=== PATIENT | male | born 1930 | race Caucasian/White ===

== ENCOUNTER 2016-06-06 09:13 | Day surgery (SDC) | payer OTHER ==
[~2016-06-06 09:13] MED LIST: ACETAMINOPHEN 325 MG ONE
[2016-06-06] MEDS: PROPARACAINE HCL 0.5% OPHTHALMIC SOL ONE ×3 (09:47→11:12)
[2016-06-06] MEDS: CYCLOPENTOLATE 1% SOL ONE ×2 (09:48→10:02)
[2016-06-06] MEDS: PHENYLEPHRINE HCL 10% OPHTHAL SOL ONE ×2 (09:48→10:01)
[2016-06-06] MEDS: KETOROLAC 0.5% OPTH 60 DROP SOL ONE ×2 (09:49→10:02)
[2016-06-06] MEDS: MOXIFLOXACIN-HOME SOL LEFTEYE ONE ×2 (09:49→10:02)
[2016-06-06] MEDS ORDERED: MIDAZOLAM 2 MG/2 ML SOL ONE (10:24)
[2016-06-06] MEDS ORDERED: FENTANYL CITRATE 50 MCG/ML SOL ONE (10:24)
[2016-06-06] MEDS ORDERED: TRYPAN BLUE 0.5 ML SOL IO ONE (11:00)
[2016-06-06] MEDS ORDERED: BACITRACIN 500 U/GM OIN TOP ONE (11:00)
[2016-06-06] MEDS ORDERED: LIDOCAINE HCL 2% MPF SOL ONE (11:00)
[2016-06-06] MEDS ORDERED: POVIDONE IODINE 5% SOL ONE (11:00)
[2016-06-06] MEDS ORDERED: LIDOCAINE HCL 1% MPF SOL ONE (11:00)
[2016-06-06] MEDS ORDERED: BSS W/ 0.25MG P.F. EPI 1 BOTTLE ONE (11:00)
[2016-06-06] MEDS ORDERED: HYALURONIDASE 200 U/ML SOL SC ONE (11:01)
[2016-06-06] MEDS ORDERED: PROPOFOL 10 MG/ML EMU IV ONE (11:07)
[2016-06-06] MEDS ORDERED: ACETAZOLAMIDE 500 MG CER ONE (11:18)
[2016-06-06] MEDS ORDERED: MOXIFLOXACIN-HOME SOL LEFTEYE ONE (11:54)
[2016-06-06 12:16] VITALS: RESP 18; TEMP 97.2
[2016-06-06 12:41] VITALS: BP 111/59; PULSE 90; O2SAT 94
== END 2016-06-06 12:38 | disposition home or self-care (01) | DRG 125 ==
LOC: SURG 09:13
PROVIDERS: ATTEND Ophthalmology
DX: H25.9 Unspecified age-related cataract (principal); H21.81 Floppy iris syndrome
CPT/HCPCS: J2250; J3010; J3470

== ENCOUNTER 2016-07-11 09:15 | Day surgery (SDC) | payer OTHER ==
[2016-07-11] MEDS ORDERED: ACETAMINOPHEN 325 MG ONE (10:09)
[2016-07-11] MEDS: PHENYLEPHRINE HCL 10% OPHTHAL SOL RIGHTEYE ONE ×2 (10:23→10:39)
[2016-07-11] MEDS: PROPARACAINE HCL 0.5% OPHTHALMIC SOL ONE ×3 (10:23→11:45)
[2016-07-11] MEDS: CYCLOPENTOLATE 1% SOL ONE ×2 (10:24→10:39)
[2016-07-11] MEDS: GATIFLOXACIN 2.5 ML DROP SOL RIGHTEYE ONE ×2 (10:24→12:22)
[2016-07-11] MEDS ORDERED: NEPAFENAC 1.7 ML DROPS.SUSP RIGHTEYE ONE ×2 (10:25→10:40)
[2016-07-11 10:32] VITALS: RESP 18
[2016-07-11] MEDS ORDERED: GATIFLOXACIN 2.5 ML DROP SOL RIGHTEYE ONE (10:39)
[2016-07-11] MEDS ORDERED: BSS W/ 0.25MG P.F. EPI 1 BOTTLE ONE (10:44)
[2016-07-11] MEDS ORDERED: LIDOCAINE HCL 1% MPF SOL ONE ×2 (10:45→11:00)
[2016-07-11] MEDS ORDERED: POVIDONE IODINE 5% SOL ONE (10:45)
[2016-07-11] MEDS ORDERED: LIDOCAINE HCL 2% MPF SOL ONE (10:46)
[2016-07-11] MEDS ORDERED: HYALURONIDASE 200 U/ML SOL SC ONE (10:46)
[2016-07-11] MEDS ORDERED: TRYPAN BLUE 0.5 ML SOL IO ONE (10:48)
[2016-07-11] MEDS ORDERED: PHENYLEPHRINE HCL 10% OPHTHAL SOL ONE (10:51)
[2016-07-11] MEDS ORDERED: MIDAZOLAM 2 MG/2 ML SOL ONE (11:00)
[2016-07-11] MEDS ORDERED: PROPOFOL 10 MG/ML EMU IV ONE (11:00)
[2016-07-11] MEDS ORDERED: BACITRACIN 500 U/GM OIN TOP ONE (11:31)
[2016-07-11] MEDS ORDERED: ERYTHROMYCIN OPTHAL 1 GM TUBE ONE (11:33)
[2016-07-11 12:41] VITALS: TEMP 97.7
[2016-07-11] MEDS ORDERED: ACETAZOLAMIDE 500 MG CER ONE (12:42)
[2016-07-11 13:25] VITALS: BP 99/64; PULSE 62; O2SAT 93
== END 2016-07-11 13:22 | disposition home or self-care (01) | DRG 125 ==
LOC: SURG 09:15
PROVIDERS: ATTEND Ophthalmology
DX: H25.9 Unspecified age-related cataract (principal); H21.81 Floppy iris syndrome; H57.09 Other anomalies of pupillary function
CPT/HCPCS: J2250; J3470; J2001; J2704

== ENCOUNTER 2016-07-30 15:56 | Emergency (ER) | payer OTHER ==
[2016-07-30 16:08] VITALS: TEMP 98.4
[2016-07-30] MEDS ORDERED: ALBUTEROL/IPRATROPIUM 1 VIAL SOL INH ONE (16:31)
[2016-07-30] MEDS ORDERED: ALBUTEROL/IPRATROPIUM 1 VIAL SOL ONE (16:33)
[2016-07-30 16:53] VITALS: RESP 28
[2016-07-30 19:29] VITALS: BP 106/66; PULSE 86; O2SAT 96
== END 2016-07-30 19:15 | disposition home or self-care (01) | DRG 203 ==
LOC: ED 15:56
DX: J20.9 Acute bronchitis, unspecified (principal)
CPT/HCPCS: 71020; 99283; J7620

== ENCOUNTER 2017-02-05 09:47 | Emergency (ER) | payer OTHER ==
[2017-02-05] MEDS ORDERED: ACETAMINOPHEN 500 MG 500 MG TAB PO ONE (10:03)
[2017-02-05 10:12] VITALS: TEMP 97.4
[2017-02-05 10:16] LABS: HEMATOCRIT 40 % (39-53); MEAN CORPUSCULAR HGB CONC 33.8 gm/dl (32.0-36.0); MEAN CORPUSCULAR VOLUME 95 fL (80-100)
[2017-02-05 10:24] LABS: CALCIUM 8.5 mg/dl (8.5-10.1); POTASSIUM 4.3 mMol/L (3.5-5.1)
[2017-02-05] MEDS ORDERED: ACETAMINOPHEN 500 MG 500 MG TAB ONE ×2 (10:30)
[2017-02-05 10:36] LABS: BASOPHILS % (MANUAL) 0 % (0-3); EOSINOPHILS % (MANUAL) 3 % (0-9); LYMPHOCYTES % (MANUAL) 23 % (10-50); NORMAL RBCS NORMAL RBCS
[2017-02-05 15:40] VITALS: BP 105/46; PULSE 89; RESP 20; O2SAT 95
== END 2017-02-05 11:50 | disposition home or self-care (01) | DRG 556 ==
LOC: ED 09:47
DX: M25.552 Pain in left hip (principal); S80.812A Abrasion, left lower leg, initial encounter; W19.XXXA Unspecified fall, initial encounter
CPT/HCPCS: 36415; 73501; 80048; 85007; 85027; 99282; 99283

== ENCOUNTER 2017-03-11 13:40 | Observation (INO) | payer OTHER ==
[2017-03-11] MEDS ORDERED: SODIUM CHLORIDE 0.9% 500 ML 500 ML IV ONE (13:49)
[2017-03-11] MEDS ORDERED: MAGNESIUM SULFATE 5 GM/10 ML SOL IV ONE (13:56)
[2017-03-11] MEDS ORDERED: MAGNESIUM SULFATE 5 GM/10 ML SOL ONE (13:58)
[2017-03-11 14:03] LABS: BASOPHILS % (AUTO) 1 % (0-3); EOSINOPHILS % (AUTO) 4 % (0-9); HEMATOCRIT 34 % (39-53); MEAN CORPUSCULAR HGB CONC 34.8 gm/dl (32.0-36.0); MEAN CORPUSCULAR VOLUME 92 fL (80-100); MONOCYTES % (AUTO) 7.6 % (0-12); NEUTROPHILS % (AUTO) 67.5 % (37-80)
[2017-03-11] MEDS: SODIUM CHLORIDE 0.9% FLUSH 10 ML SOL IV PRN ×2 (14:10→20:48)
[2017-03-11 14:16] LABS: CALCIUM 8.5 mg/dl (8.5-10.1); GLOM FILT RATE 58 mL/min (>60); POTASSIUM 4.4 mMol/L (3.5-5.1); SODIUM 139 mMol/L (136-145)
[2017-03-11] MEDS ORDERED: ALBUTEROL/IPRATROPIUM 1 VIAL SOL INH ONE (14:17)
[2017-03-11] MEDS ORDERED: ALBUTEROL NEB SOL 2.5MG/3ML 1 VIAL SOL INH PRN (18:43)
[2017-03-11] MEDS ORDERED: ACETAMINOPHEN 325 MG PO PRN (18:43)
[2017-03-11] MEDS: ALBUTEROL/IPRATROPIUM 1 VIAL SOL INH SCH (20:39)
[2017-03-12 06:21] VITALS: RESP 20
[2017-03-12 08:16] VITALS: TEMP 97.8; O2SAT 96
[2017-03-12] MEDS ORDERED: TAMSULOSIN HYDROCHLORIDE 0.4 MG CAP PO SCH (09:00)
[2017-03-12] MEDS ORDERED: FINASTERIDE 5 MG TAB PO SCH (09:00)
[2017-03-12] MEDS: ALBUTEROL/IPRATROPIUM 1 VIAL SOL INH SCH (09:30)
[2017-03-12 11:31] VITALS: PULSE 84
[2017-03-12 13:29] VITALS: BP 91/50
[2017-03-13] MEDS ORDERED: METOPROLOL SUCCINATE 50 MG ER TAB PO SCH (09:00)
== END 2017-03-12 14:45 | DRG 310 ==
LOC: ED 13:40 → ACUTE CARE 16:20 → UNDOADMOB 16:30
PROVIDERS: ADMIT Surgery Surgical Critical Care; ATTEND Surgery Surgical Critical Care
DX: I48.0 Paroxysmal atrial fibrillation (principal); I95.9 Hypotension, unspecified; R06.02 Shortness of breath; R07.9 Chest pain, unspecified
CPT/HCPCS: 36415; 71010; 80048; 83735; 83880; 84484; 85025; 93005; 93012; 96365; 96366; 99218; 99285; J3475; J7603; J7620

== ENCOUNTER 2017-06-04 16:19 | Emergency (ER) | payer MEDICARE, OTHER ==
[2017-06-04] MEDS ORDERED: ACETAMINOPHEN 500 MG 500 MG TAB PO ONE (16:40)
[2017-06-04] MEDS ORDERED: ACETAMINOPHEN 500 MG 500 MG TAB ONE (16:41)
[2017-06-04 16:56] VITALS: RESP 20; TEMP 99.2
[2017-06-04] MEDS ORDERED: LIDOCAINE HCL 1% MPF SOL ONE (17:50)
[2017-06-04] MEDS ORDERED: LIDOCAINE HCL 1% MDV SOL SC ONE (17:51)
[2017-06-04 18:47] VITALS: BP 112/72; PULSE 87; O2SAT 97
== END 2017-06-04 19:20 | disposition home or self-care (01) | DRG 605 ==
LOC: ED 16:19
DX: S01.01XA Laceration without foreign body of scalp, initial encounter (principal); R40.2412 Glasgow coma scale score 13-15, at arrival to emergency department; W01.0XXA Fall on same level from slipping, tripping and stumbling without subsequent striking against object, initial encounter
CPT/HCPCS: 70450; 99285; J2001

== ENCOUNTER 2017-07-21 17:16 | Emergency (ER) | payer OTHER ==
[2017-07-21] MEDS ORDERED: SODIUM CHLORIDE 0.9% 500 ML SOL IV SCH (17:45)
[2017-07-21] MEDS ORDERED: ALBUTEROL/IPRATROPIUM 1 VIAL SOL INH ONE (17:48)
[2017-07-21 18:01] LABS: APPEARANCE,URINE Slightly Cloudy; BILIRUBIN,URINE NEGATIVE (NEGATIVE); COLOR,URINE Yellow; GLUCOSE, URINE (UA) NEGATIVE (NEGATIVE); KETONES,URINE NEGATIVE (NEGATIVE); LEUKOCYTE ESTERASE ,URINE NEGATIVE (NEGATIVE); NITRATE,URINE NEGATIVE (NEGATIVE); OCCULT BLOOD,URINE NEGATIVE (NEG-TRACE); UROBILINOGEN,URINE 0.2 (0.2-1.0 EU)
[2017-07-21 18:01] LABS: BASOPHILS % (AUTO) 1 % (0-3); EOSINOPHILS % (AUTO) 0 % (0-9); HEMATOCRIT 39 % (39-53); MEAN CORPUSCULAR HGB CONC 34.3 gm/dl (32.0-36.0); MEAN CORPUSCULAR VOLUME 92 fL (80-100); MONOCYTES % (AUTO) 10.3 % (0-12); NEUTROPHILS % (AUTO) 79.9 % (37-80)
[2017-07-21 18:12] LABS: ALBUMIN 3.5 gm/dl (3.4-5.0); CALCIUM 8.4 mg/dl (8.5-10.1); POTASSIUM 4.5 mMol/L (3.5-5.1)
[2017-07-21] MEDS ORDERED: ALBUTEROL/IPRATROPIUM 1 VIAL SOL ONE (18:22)
[2017-07-21 18:23] LABS: RBC,URINE 0-1 (0-3AV/HPF)
[2017-07-21] MEDS ORDERED: OSELTAMIVIR PHOSPHATE 75 MG CAP PO ONE ×2 (18:29→18:36)
[2017-07-21 18:30] VITALS: RESP 20
[2017-07-21] MEDS ORDERED: IBUPROFEN 400 MG TAB PO ONE (18:30)
[2017-07-21] MEDS ORDERED: IBUPROFEN 400 MG TAB ONE (18:36)
[2017-07-21 19:28] VITALS: TEMP 101.1
[2017-07-21 20:54] VITALS: BP 99/59; PULSE 93; O2SAT 95
== END 2017-07-21 20:30 | disposition home or self-care (01) | DRG 192 ==
LOC: ED 17:16
DX: J44.1 Chronic obstructive pulmonary disease with (acute) exacerbation (principal); J11.1 Influenza due to unidentified influenza virus with other respiratory manifestations; M79.651 Pain in right thigh; R32 Unspecified urinary incontinence
CPT/HCPCS: 36415; 71045; 73552; 80053; 81001; 85025; 87040; 87077; 87088; 87186; 87804; 96365; 99284; A9270-GY

== ENCOUNTER 2017-08-18 16:40 | Emergency (ER) | payer OTHER ==
[2017-08-18 17:32] LABS: BASOPHILS % (AUTO) 1 % (0-3); EOSINOPHILS % (AUTO) 2 % (0-9); HEMATOCRIT 38 % (39-53); MEAN CORPUSCULAR VOLUME 96 fL (80-100); MONOCYTES % (AUTO) 7.8 % (0-12)
[2017-08-18 17:47] LABS: CALCIUM 8.6 mg/dl (8.5-10.1); POTASSIUM 4.6 mMol/L (3.5-5.1)
[2017-08-18 17:59] LABS: APPEARANCE,URINE Clear; BILIRUBIN,URINE NEGATIVE (NEGATIVE); COLOR,URINE Yellow; GLUCOSE, URINE (UA) NEGATIVE (NEGATIVE); KETONES,URINE NEGATIVE (NEGATIVE); LEUKOCYTE ESTERASE ,URINE NEGATIVE (NEGATIVE); NITRATE,URINE NEGATIVE (NEGATIVE); OCCULT BLOOD,URINE NEGATIVE (NEG-TRACE); UROBILINOGEN,URINE 0.2 (0.2-1.0 EU)
[2017-08-18 18:12] LABS: RBC,URINE NEG (0-3AV/HPF); WBC,URINE NEG (0-5AV/HPF)
[2017-08-18 18:17] VITALS: BP 149/87; PULSE 93; RESP 20; O2SAT 98
[2017-08-18 18:18] VITALS: TEMP 98.3
[2017-08-18] MEDS ORDERED: AMOXICILLIN 250 MG CAP PO ONE (18:31)
[2017-08-18] MEDS ORDERED: AMOXICILLIN(FRIDGE) 125/5 ML BOTTLE PO ONE (18:37)
[2017-08-18] MEDS ORDERED: AMOXICILLIN(FRIDGE) 125/5 ML BOTTLE ONE (18:38)
[2017-08-18] MEDS ORDERED: ACETAMINOPHEN 325 MG PO ONE (18:53)
[2017-08-18] MEDS ORDERED: ACETAMINOPHEN 325 MG ONE (18:54)
== END 2017-08-18 19:37 | disposition home or self-care (01) | DRG 914 ==
LOC: ED 16:40
DX: S09.8XXA Other specified injuries of head, initial encounter (principal); J01.90 Acute sinusitis, unspecified; S70.11XA Contusion of right thigh, initial encounter; W18.09XA Striking against other object with subsequent fall, initial encounter; R40.2412 Glasgow coma scale score 13-15, at arrival to emergency department; M54.2 Cervicalgia; R41.0 Disorientation, unspecified; S61.011A Laceration without foreign body of right thumb without damage to nail, initial encounter
CPT/HCPCS: 36415; 70450; 71045; 72125; 73552; 80048; 81001; 85025; 93005; 99285; A9270-GY

== ENCOUNTER 2018-03-30 10:59 | Inpatient (IN) | payer OTHER ==
[2018-03-30] MEDS ORDERED: SODIUM CHLORIDE 0.9% FLUSH 10 ML SOL IV PRN (11:18)
[2018-03-30] MEDS ORDERED: MORPHINE SULFATE 10 MG/ML SOL IV PRN (11:18)
[2018-03-30] MEDS ORDERED: FUROSEMIDE 40 MG SOL IV ONE (11:20)
[2018-03-30] MEDS ORDERED: FUROSEMIDE 20mg SOL ONE ×2 (11:53→11:55)
[2018-03-30] MEDS ORDERED: CLOTRIMAZOLE 1% CREAM TOP ONE (11:54)
[2018-03-30] MEDS: CLOTRIMAZOLE 1% CREAM TOP SCH (12:00)
[2018-03-30] MEDS ORDERED: LEVOFLOXACIN 25 MG/ML 500 MG in SODIUM CHLORIDE 0.9% 100 ML 100 ML IV ONE (12:14)
[2018-03-30 12:16] LABS: HEMATOCRIT 42 % (39-53); HEMOGLOBIN 13.4 gm/dl (13.5-17.7); MEAN CORPUSCULAR HEMOGLOBIN 30.7 pg (27.0-32.0); MEAN CORPUSCULAR HGB CONC 31.8 gm/dl (32.0-36.0); MEAN CORPUSCULAR VOLUME 97 fL (80-100)
[2018-03-30 12:27] LABS: INR 1.05 (0.86-1.12)
[2018-03-30 12:31] LABS: BLOOD UREA NITROGEN 25 mg/dl (7-18); CALCIUM 8.7 mg/dl (8.5-10.1); CARBON DIOXIDE 28.1 mEq/L (21-32); CHLORIDE 104 mMol/L (98-107); CREATINE KINASE 61 U/L (39-308); CREATININE 1.25 mg/dl (0.80-1.30); GLUCOSE 139 mg/dl (74-106); POTASSIUM 4.5 mMol/L (3.5-5.1); SODIUM 141 mMol/L (136-145); TROP I < 0.017 ng/ml (0.000-0.056)
[2018-03-30] MEDS ORDERED: LEVOFLOXACIN 25 MG/ML SOL IV ONE (12:32)
[2018-03-30 13:00] LABS: ANISOCYTOSIS SLIGHT; BAND NEUTROPHILS % (MANUAL) 1 %; BASOPHILS % (MANUAL) 0 % (0-3); EOSINOPHILS % (MANUAL) 0 % (0-9); LYMPHOCYTES % (MANUAL) 7 % (10-50); MONOCYTES % (MANUAL) 4 % (0-12); NEUTROPHILS % (MANUAL) 88 % (37-80)
[2018-03-30] MEDS ORDERED: FUROSEMIDE 20mg SOL IV SCH (14:00)
[2018-03-30] MEDS ORDERED: HYDROCORTISONE 1% CREAM 1 APPL CRE TOP PRN (15:44)
[2018-03-30] MEDS ORDERED: APAP/HYDROCODONE 1 EACH TABLET PO PRN (17:06)
[2018-03-30] MEDS: ALBUTEROL NEB SOL 2.5MG/3ML 1 VIAL SOL INH SCH ×3 (18:18→23:31)
[2018-03-30] MEDS ORDERED: ACETAMINOPHEN 325 MG PO PRN (21:00)
[2018-03-30] MEDS: ALBUTEROL/IPRATROPIUM 1 VIAL SOL INH SCH (21:49)
[2018-03-30] MEDS: SODIUM CHLORIDE 0.9% FLUSH 10 ML SOL IV SCH (21:55)
[2018-03-30] MEDS: TRAZODONE HYDROCHLORIDE 50 MG TAB PO SCH (21:55)
[2018-03-30] MEDS: SERTRALINE HYDROCHLORIDE 50 MG TAB PO SCH (21:56)
[2018-03-30] MEDS: NUTRITIONAL SUPPLEMENT PO SCH (21:57)
[2018-03-31] MEDS ORDERED: FUROSEMIDE 20mg SOL IV ONE (00:15)
[2018-03-31] MEDS ORDERED: CLINDAMYCIN 150 MG/ML SOL ONE ×2 (00:50→09:01)
[2018-03-31] MEDS ORDERED: SODIUM CHLORIDE 0.9% 100 ML 100 ML IV ONE ×6 (00:51→23:25)
[2018-03-31] MEDS: CLINDAMYCIN 150 MG/ML 600 MG in SODIUM CHLORIDE 0.9% 100 ML 100 ML IV SCH ×2 (00:59→09:26)
[2018-03-31] MEDS: SODIUM CHLORIDE 0.9% FLUSH 10 ML SOL IV SCH ×4 (00:59→20:30)
[2018-03-31 08:19] LABS: BASOPHILS % (AUTO) 1 % (0-3); EOSINOPHILS % (AUTO) 1 % (0-9); HEMATOCRIT 39 % (39-53); HEMOGLOBIN 12.4 gm/dl (13.5-17.7); LYMPHOCYTES % (AUTO) 8.1 % (10-50); MEAN CORPUSCULAR HEMOGLOBIN 30.1 pg (27.0-32.0); MEAN CORPUSCULAR HGB CONC 31.4 gm/dl (32.0-36.0); MEAN CORPUSCULAR VOLUME 96 fL (80-100); MONOCYTES % (AUTO) 6.5 % (0-12); NEUTROPHILS % (AUTO) 84.2 % (37-80)
[2018-03-31 08:48] LABS: BLOOD UREA NITROGEN 31 mg/dl (7-18); CALCIUM 8.4 mg/dl (8.5-10.1); CARBON DIOXIDE 32.4 mEq/L (21-32); CHLORIDE 104 mMol/L (98-107); CHOL/HDL RATIO 4.1 (2.8-6.4); CHOLESTEROL 95 mg/dl (120-200); CREATININE 1.41 mg/dl (0.80-1.30); GLUCOSE 131 mg/dl (74-106); HDL CHOLESTEROL 23 mg/dl (40-60); LDL/HDL RATIO 2.6 (1.5-4.5); MAGNESIUM 1.8 mg/dl (1.8-2.4); POTASSIUM 3.5 mMol/L (3.5-5.1); SODIUM 143 mMol/L (136-145); THYROID STIMULATING HORMONE 4.263 uIU/ml (0.358-3.740); TROP I < 0.017 ng/ml (0.000-0.056)
[2018-03-31] MEDS ORDERED: METOPROLOL SUCCINATE 25 MG TAB.ER.24H PO SCH (09:00)
[2018-03-31] MEDS: ALBUTEROL/IPRATROPIUM 1 VIAL SOL INH SCH ×4 (09:17→20:49)
[2018-03-31] MEDS: FUROSEMIDE 20mg SOL IV SCH ×2 (09:20→11:57)
[2018-03-31] MEDS: TAMSULOSIN HYDROCHLORIDE 0.4 MG CAP PO SCH (09:20)
[2018-03-31] MEDS: CLOTRIMAZOLE 1% CREAM TOP SCH (09:34)
[2018-03-31] MEDS: NUTRITIONAL SUPPLEMENT PO SCH ×3 (09:34→22:25)
[2018-03-31] MEDS ORDERED: LEVOFLOXACIN 25 MG/ML 500 MG in SODIUM CHLORIDE 0.9% 100 ML 100 ML IV ONE (10:00)
[2018-03-31] MEDS ORDERED: LEVOFLOXACIN 25 MG/ML SOL IV ONE (10:25)
[2018-03-31] MEDS: ALBUTEROL NEB SOL 2.5MG/3ML 1 VIAL SOL INH PRN ×3 (10:29→23:18)
[2018-03-31] MEDS ORDERED: DILTIAZEM 5 MG/ML SOL IV ONE (12:21)
[2018-03-31] MEDS ORDERED: PIPERACILLIN/TAZOBACT 3.375 GM PDS IV ONE ×3 (12:46→23:25)
[2018-03-31] MEDS: PIPERACILLIN/TAZOBACT 3.375 GM 3.375 GM in SODIUM CHLORIDE 0.9% 100 ML 100 ML IV SCH ×2 (13:15→18:25)
[2018-03-31] MEDS ORDERED: METOPROLOL TARTRATE 25 MG TAB ONE (16:12)
[2018-03-31] MEDS ORDERED: METOPROLOL SUCCINATE 50 MG ER TAB ONE (16:14)
[2018-03-31] MEDS: METOPROLOL SUCCINATE 25 MG TAB.ER.24H PO SCH (16:33)
[2018-03-31] MEDS ORDERED: SODIUM CHLORIDE 0.9% 500 ML 500 ML IV ONE (20:13)
[2018-03-31] MEDS: TRAZODONE HYDROCHLORIDE 50 MG TAB PO SCH (20:48)
[2018-03-31] MEDS: SERTRALINE HYDROCHLORIDE 50 MG TAB PO SCH (20:49)
[2018-04-01] MEDS: SODIUM CHLORIDE 0.9% FLUSH 10 ML SOL IV SCH ×5 (00:08→20:10)
[2018-04-01] MEDS: PIPERACILLIN/TAZOBACT 3.375 GM 3.375 GM in SODIUM CHLORIDE 0.9% 100 ML 100 ML IV SCH ×4 (00:08→19:13)
[2018-04-01] MEDS ORDERED: SODIUM CHLORIDE 0.9% 100 ML 100 ML IV ONE ×3 (06:17→19:04)
[2018-04-01] MEDS ORDERED: PIPERACILLIN/TAZOBACT 3.375 GM PDS IV ONE ×3 (06:17→19:04)
[2018-04-01 07:27] LABS: CREATININE 1.47 mg/dl (0.80-1.30); POTASSIUM 3.2 mMol/L (3.5-5.1)
[2018-04-01 07:28] LABS: BASOPHILS % (AUTO) 1 % (0-3); EOSINOPHILS % (AUTO) 1 % (0-9); HEMATOCRIT 37 % (39-53); LYMPHOCYTES % (AUTO) 8.4 % (10-50); MEAN CORPUSCULAR HEMOGLOBIN 30.9 pg (27.0-32.0); MEAN CORPUSCULAR HGB CONC 32.3 gm/dl (32.0-36.0); MEAN CORPUSCULAR VOLUME 96 fL (80-100); MONOCYTES % (AUTO) 7.2 % (0-12); NEUTROPHILS % (AUTO) 82.3 % (37-80)
[2018-04-01] MEDS: ALBUTEROL/IPRATROPIUM 1 VIAL SOL INH SCH ×4 (08:03→21:18)
[2018-04-01] MEDS ORDERED: POTASSIUM CHLORIDE 2 MEQ/ML 60 MEQ, LIDOCAINE HCL 1% MDV 2 ML in SODIUM CHLORIDE 0.9% 1... IV ONE (09:00)
[2018-04-01] MEDS: NUTRITIONAL SUPPLEMENT PO SCH ×3 (10:08→22:00)
[2018-04-01] MEDS: FINASTERIDE 5 MG TAB PO SCH (10:09)
[2018-04-01] MEDS: METOPROLOL SUCCINATE 50 MG TER PO SCH (10:10)
[2018-04-01] MEDS: TAMSULOSIN HYDROCHLORIDE 0.4 MG CAP PO SCH (10:11)
[2018-04-01] MEDS: CLOTRIMAZOLE 1% CREAM TOP SCH (12:00)
[2018-04-01] MEDS ORDERED: POTASSIUM CHLORIDE 10 MEQ TER PO SCH (14:00)
[2018-04-01] MEDS ORDERED: POTASSIUM CHLORIDE 2 MEQ/ML SOL IV ONE (14:35)
[2018-04-01] MEDS: FUROSEMIDE 20mg SOL IV SCH ×2 (14:43→18:02)
[2018-04-01] MEDS ORDERED: LIDOCAINE HCL 1% MPF 30 SOL ONE (14:48)
[2018-04-01] MEDS: POTASSIUM CHLORIDE 10 MEQ TER PO SCH ×2 (15:28→15:29)
[2018-04-01] MEDS ORDERED: POTASSIUM CHLORIDE 10 MEQ CAPSULE PO ONE (17:00)
[2018-04-01] MEDS: TRAZODONE HYDROCHLORIDE 50 MG TAB PO SCH (20:36)
[2018-04-01] MEDS: SERTRALINE HYDROCHLORIDE 50 MG TAB PO SCH (20:37)
[2018-04-02] MEDS ORDERED: SODIUM CHLORIDE 0.9% 100 ML 100 ML IV ONE ×2 (00:57→06:17)
[2018-04-02] MEDS ORDERED: PIPERACILLIN/TAZOBACT 3.375 GM PDS IV ONE ×2 (00:57→06:17)
[2018-04-02] MEDS: PIPERACILLIN/TAZOBACT 3.375 GM 3.375 GM in SODIUM CHLORIDE 0.9% 100 ML 100 ML IV SCH ×2 (00:58→06:22)
[2018-04-02] MEDS: ALBUTEROL NEB SOL 2.5MG/3ML 1 VIAL SOL INH PRN (04:28)
[2018-04-02] MEDS: SODIUM CHLORIDE 0.9% FLUSH 10 ML SOL IV SCH ×3 (04:35→20:36)
[2018-04-02 07:50] LABS: CALCIUM 8.4 mg/dl (8.5-10.1); CARBON DIOXIDE 31.2 mEq/L (21-32); CREATININE 1.43 mg/dl (0.80-1.30)
[2018-04-02 07:59] LABS: BASOPHILS % (AUTO) 1 % (0-3); EOSINOPHILS % (AUTO) 3 % (0-9); HEMATOCRIT 39 % (39-53); HEMOGLOBIN 12.3 gm/dl (13.5-17.7); LYMPHOCYTES % (AUTO) 10.4 % (10-50); MEAN CORPUSCULAR HEMOGLOBIN 30.4 pg (27.0-32.0); MEAN CORPUSCULAR HGB CONC 31.6 gm/dl (32.0-36.0); MEAN CORPUSCULAR VOLUME 96 fL (80-100); MONOCYTES % (AUTO) 7.2 % (0-12); NEUTROPHILS % (AUTO) 78.5 % (37-80)
[2018-04-02] MEDS: FINASTERIDE 5 MG TAB PO SCH (09:53)
[2018-04-02] MEDS: METOPROLOL SUCCINATE 50 MG TER PO SCH (09:53)
[2018-04-02] MEDS: CLOTRIMAZOLE 1% CREAM TOP SCH (09:53)
[2018-04-02] MEDS: ALBUTEROL/IPRATROPIUM 1 VIAL SOL INH SCH ×4 (09:54→20:33)
[2018-04-02] MEDS: TAMSULOSIN HYDROCHLORIDE 0.4 MG CAP PO SCH (09:54)
[2018-04-02] MEDS: FUROSEMIDE 40 MG TAB PO SCH ×2 (10:00→12:17)
[2018-04-02] MEDS: AMOXIL/CLAVULANATE 400/5 ML PDR PO SCH ×2 (10:00→20:35)
[2018-04-02] MEDS: NUTRITIONAL SUPPLEMENT PO SCH ×3 (10:01→20:44)
[2018-04-02] MEDS: FUROSEMIDE 20mg SOL IV SCH (12:21)
[2018-04-02] MEDS: METOPROLOL SUCCINATE 25 MG TAB.ER.24H PO SCH (12:22)
[2018-04-02] MEDS: SERTRALINE HYDROCHLORIDE 50 MG TAB PO SCH (20:36)
[2018-04-02] MEDS: TRAZODONE HYDROCHLORIDE 50 MG TAB PO SCH (20:37)
[2018-04-03 00:10] VITALS: TEMP 97.9
[2018-04-03] MEDS: SODIUM CHLORIDE 0.9% FLUSH 10 ML SOL IV SCH ×2 (04:53→12:30)
[2018-04-03 07:28] VITALS: BP 114/72; PULSE 92; RESP 24
[2018-04-03 07:32] LABS: CALCIUM 8.7 mg/dl (8.5-10.1); CREATININE 1.3 mg/dl (0.80-1.30)
[2018-04-03 07:33] LABS: BASOPHILS % (AUTO) 1 % (0-3); EOSINOPHILS % (AUTO) 5 % (0-9); HEMATOCRIT 43 % (39-53); HEMOGLOBIN 13.5 gm/dl (13.5-17.7); LYMPHOCYTES % (AUTO) 12.1 % (10-50); MEAN CORPUSCULAR HEMOGLOBIN 30.2 pg (27.0-32.0); MEAN CORPUSCULAR HGB CONC 31.5 gm/dl (32.0-36.0); MEAN CORPUSCULAR VOLUME 96 fL (80-100); MONOCYTES % (AUTO) 5.9 % (0-12); NEUTROPHILS % (AUTO) 76.4 % (37-80)
[2018-04-03] MEDS: ALBUTEROL/IPRATROPIUM 1 VIAL SOL INH SCH (09:03)
[2018-04-03] MEDS: CLOTRIMAZOLE 1% CREAM TOP SCH (09:05)
[2018-04-03] MEDS: FINASTERIDE 5 MG TAB PO SCH (09:06)
[2018-04-03] MEDS: TAMSULOSIN HYDROCHLORIDE 0.4 MG CAP PO SCH (09:06)
[2018-04-03] MEDS: NUTRITIONAL SUPPLEMENT PO SCH (09:06)
[2018-04-03] MEDS: METOPROLOL SUCCINATE 50 MG TER PO SCH (09:07)
[2018-04-03] MEDS: FUROSEMIDE 40 MG TAB PO SCH ×2 (09:08→11:04)
[2018-04-03] MEDS: AMOXIL/CLAVULANATE 400/5 ML PDR PO SCH (09:10)
[2018-04-03 09:21] VITALS: O2SAT 95
== END 2018-04-03 12:15 | disposition home or self-care (01) | DRG 291 ==
LOC: ED 10:59 → UNDOADMIN 13:51 → ACUTE CARE 13:51
PROVIDERS: ADMIT Family Medicine; ATTEND Family Medicine
PROC: F01K5ZZ Range of Motion and Joint Integrity Assessment of Musculoskeletal System - Upper Back / Upper Extremity (ICD-10-PCS; principal; 2018-04-02)
PROC: F02Z3ZZ Grooming/Personal Hygiene Assessment (ICD-10-PCS; 2018-04-02)
DX: I50.9 Heart failure, unspecified (principal); J18.9 Pneumonia, unspecified organism; R06.00 Dyspnea, unspecified; R06.02 Shortness of breath; D72.829 Elevated white blood cell count, unspecified; R00.0 Tachycardia, unspecified; I48.91 Unspecified atrial fibrillation; I25.10 Atherosclerotic heart disease of native coronary artery without angina pectoris; E11.9 Type 2 diabetes mellitus without complications
CPT/HCPCS: 36415; 71045; 80048; 80061; 82550; 82962; 83735; 83880; 84132; 84443; 84484; 85007; 85025; 85027; 85610; 85730; 87040; 93005; 93012; 94640; 96365; 96374; 96375; 99223; 99232; 99285; J1940; J1956; J2543; J3480; J3490; J7613; A9270; A9270-GY; J2001

== ENCOUNTER 2018-04-21 09:34 | Observation (INO) | payer OTHER ==
[2018-04-21] MEDS ORDERED: ALBUTEROL/IPRATROPIUM 1 VIAL SOL INH ONE (10:06)
[2018-04-21] MEDS ORDERED: SOLUMEDROL 125 MG/2 ML 125 MG/2 ML PDS IV ONE (10:09)
[2018-04-21 10:23] LABS: BASOPHILS % (AUTO) 1 % (0-3); EOSINOPHILS % (AUTO) 2 % (0-9); HEMATOCRIT 42 % (39-53); HEMOGLOBIN 13.2 gm/dl (13.5-17.7); LYMPHOCYTES % (AUTO) 13.6 % (10-50); MEAN CORPUSCULAR HGB CONC 31.6 gm/dl (32.0-36.0); MEAN CORPUSCULAR VOLUME 95 fL (80-100); MONOCYTES % (AUTO) 10.9 % (0-12); NEUTROPHILS % (AUTO) 73.2 % (37-80)
[2018-04-21] MEDS ORDERED: ALBUTEROL/IPRATROPIUM 1 VIAL SOL ONE (10:24)
[2018-04-21] MEDS ORDERED: SOLUMEDROL 125 MG/2 ML 125 MG/2 ML PDS ONE (10:24)
[2018-04-21 10:26] LABS: LACTIC ACID 1.4 mMol/L (0.0-2.0)
[2018-04-21 10:36] LABS: ALBUMIN 2.7 gm/dl (3.4-5.0); BILIRUBIN,TOTAL 0.4 mg/dl (0.2-1.0); CALCIUM 8.5 mg/dl (8.5-10.1); CARBON DIOXIDE 29.1 mEq/L (21-32); CREATININE 1.46 mg/dl (0.80-1.30); TOTAL PROTEIN 7.3 gm/dl (6.4-8.2)
[2018-04-21] MEDS: SODIUM CHLORIDE 0.9% FLUSH 10 ML SOL IV PRN ×2 (10:37→18:21)
[2018-04-21 10:58] LABS: APPEARANCE,URINE Clear; BILIRUBIN,URINE NEGATIVE (NEGATIVE); COLOR,URINE Yellow; GLUCOSE, URINE (UA) NEGATIVE (NEGATIVE); KETONES,URINE NEGATIVE (NEGATIVE); LEUKOCYTE ESTERASE ,URINE TRACE (NEGATIVE); NITRATE,URINE NEGATIVE (NEGATIVE); OCCULT BLOOD,URINE NEGATIVE (NEG-TRACE); UROBILINOGEN,URINE 0.2 (0.2-1.0 EU)
[2018-04-21 11:19] LABS: BACTERIA 2+ (< 1+); CRYSTALS NEGATIVE (0-3 AVE/HPF); EPITHELIAL CELLS 0-4 (SQUAMOUS); RBC,URINE 0-2 (0-3AV/HPF)
[2018-04-21 11:20] LABS: INFLUENZA A NEGATIVE (NEGATIVE); INFLUENZA B NEGATIVE (NEGATIVE)
[2018-04-21] MEDS ORDERED: PIPERACILLIN/TAZOBACT 3.375 GM 3.375 GM in SODIUM CHLORIDE 0.9% 100 ML 100 ML IV ONE (12:17)
[2018-04-21] MEDS ORDERED: ALBUTEROL NEB SOL 2.5MG/3ML 1 VIAL SOL NEB ONE (12:17)
[2018-04-21] MEDS ORDERED: ALBUTEROL NEB SOL 2.5MG/3ML 1 VIAL SOL ONE (12:23)
[2018-04-21] MEDS ORDERED: PIPERACILLIN/TAZOBACT 3.375 GM PDS IV ONE ×3 (12:23→23:48)
[2018-04-21] MEDS ORDERED: ALBUTEROL NEB SOL 2.5MG/3ML 1 VIAL SOL NEB PRN (13:32)
[2018-04-21] MEDS ORDERED: ALBUTEROL NEB SOL 2.5MG/3ML 1 VIAL SOL INH PRN (13:38)
[2018-04-21] MEDS ORDERED: HYDROCORTISONE 1% CREAM 1 APPL CRE TOP PRN (13:38)
[2018-04-21] MEDS ORDERED: ALOE TOP PRN (13:38)
[2018-04-21] MEDS ORDERED: APAP/HYDROCODONE 325/7.5 TAB PO PRN (13:38)
[2018-04-21] MEDS ORDERED: [UNRECOGNIZED DRUG - OTHER] TOP SCH (14:00)
[2018-04-21] MEDS ORDERED: APPL TOP SCH (14:00)
[2018-04-21] MEDS: ALBUTEROL/IPRATROPIUM 1 VIAL SOL INH SCH ×2 (14:10→19:52)
[2018-04-21] MEDS: [UNRECOGNIZED DRUG - OTHER] RIGHTEYE SCH ×2 (15:00→22:37)
[2018-04-21] MEDS: POLY80 RIGHTEYE SCH ×2 (15:00→22:37)
[2018-04-21] MEDS: GLY RIGHTEYE SCH ×2 (15:00→22:37)
[2018-04-21] MEDS: CARBOXYMETHYL RIGHTEYE SCH ×2 (15:00→22:37)
[2018-04-21] MEDS ORDERED: ALBUTEROL/IPRATROPIUM 1 VIAL SOL INH SCH (17:00)
[2018-04-21] MEDS ORDERED: SODIUM CHLORIDE 0.9% 100 ML 100 ML IV ONE ×2 (18:12→23:48)
[2018-04-21] MEDS: PIPERACILLIN/TAZOBACT 3.375 GM 3.375 GM in SODIUM CHLORIDE 0.9% 100 ML 100 ML IV SCH (18:20)
[2018-04-21] MEDS: ACETAMINOPHEN 325 MG PO PRN (19:12)
[2018-04-21] MEDS: TRAZODONE HYDROCHLORIDE 50 MG TAB PO SCH (21:28)
[2018-04-21] MEDS: SERTRALINE HYDROCHLORIDE 50 MG TAB PO SCH (21:28)
[2018-04-21] MEDS: GUAIFENESIN 600 MG PO SCH (22:40)
[2018-04-22] MEDS: PIPERACILLIN/TAZOBACT 3.375 GM 3.375 GM in SODIUM CHLORIDE 0.9% 100 ML 100 ML IV SCH ×4 (00:05→18:19)
[2018-04-22] MEDS: SODIUM CHLORIDE 0.9% FLUSH 10 ML SOL IV PRN ×3 (00:05→18:19)
[2018-04-22] MEDS: ALBUTEROL/IPRATROPIUM 1 VIAL SOL INH SCH ×4 (01:44→20:25)
[2018-04-22] MEDS ORDERED: SODIUM CHLORIDE 0.9% 100 ML 100 ML IV ONE ×3 (05:25→18:11)
[2018-04-22] MEDS ORDERED: PIPERACILLIN/TAZOBACT 3.375 GM PDS IV ONE ×3 (05:25→18:11)
[2018-04-22] MEDS: SODIUM CHLORIDE 0.9% FLUSH 10 ML SOL IV SCH ×3 (05:48→14:03)
[2018-04-22] MEDS ORDERED: FUROSEMIDE 40 MG TAB PO SCH (09:00)
[2018-04-22] MEDS ORDERED: CEROVITE JR PO SCH (09:00)
[2018-04-22] MEDS ORDERED: APAP/HYDROCODONE 1 EACH TABLET PO PRN (09:15)
[2018-04-22] MEDS: TAMSULOSIN HYDROCHLORIDE 0.4 MG CAP PO SCH (09:39)
[2018-04-22] MEDS: METOPROLOL SUCCINATE 50 MG ER TAB PO SCH (09:40)
[2018-04-22] MEDS: ASCORBIC ACID 500 MG TAB PO SCH (09:40)
[2018-04-22] MEDS: SOLUMEDROL 125 MG/2 ML 125 MG/2 ML PDS IV SCH (09:43)
[2018-04-22] MEDS: ENOXAPARIN 40 MG SOL SC SCH (09:43)
[2018-04-22] MEDS: GUAIFENESIN 200 MG/10 ML SOL PO SCH ×3 (10:50→20:32)
[2018-04-22] MEDS: MULTIVITAMIN2 1 EA TAB PO SCH (10:51)
[2018-04-22] MEDS: FUROSEMIDE 20 MG TAB PO SCH ×2 (10:51→13:40)
[2018-04-22] MEDS: PEG-400/PROPYLENE GLYCOL 1 DROP SOL RIGHTEYE SCH ×3 (10:52→20:32)
[2018-04-22] MEDS: POLY80 RIGHTEYE SCH (11:09)
[2018-04-22] MEDS: CARBOXYMETHYL RIGHTEYE SCH (11:09)
[2018-04-22] MEDS: [UNRECOGNIZED DRUG - OTHER] RIGHTEYE SCH (11:09)
[2018-04-22] MEDS: GLY RIGHTEYE SCH (11:09)
[2018-04-22] MEDS: GUAIFENESIN 600 MG PO SCH (11:09)
[2018-04-22] MEDS: TRAZODONE HYDROCHLORIDE 50 MG TAB PO SCH (20:29)
[2018-04-22] MEDS: SERTRALINE HYDROCHLORIDE 50 MG TAB PO SCH (20:31)
[2018-04-22] MEDS ORDERED: FINASTERIDE 5 MG TAB PO SCH (21:00)
[2018-04-22] MEDS: ACETAMINOPHEN 325 MG PO PRN (21:30)
[2018-04-23] MEDS ORDERED: SODIUM CHLORIDE 0.9% 100 ML 100 ML IV ONE ×2 (00:44→05:39)
[2018-04-23] MEDS ORDERED: PIPERACILLIN/TAZOBACT 3.375 GM PDS IV ONE ×2 (00:44→05:39)
[2018-04-23] MEDS: PIPERACILLIN/TAZOBACT 3.375 GM 3.375 GM in SODIUM CHLORIDE 0.9% 100 ML 100 ML IV SCH ×2 (00:53→05:47)
[2018-04-23] MEDS: SODIUM CHLORIDE 0.9% FLUSH 10 ML SOL IV SCH ×2 (00:54→05:38)
[2018-04-23] MEDS: ALBUTEROL/IPRATROPIUM 1 VIAL SOL INH SCH ×2 (01:33→07:37)
[2018-04-23 07:25] LABS: CARBON DIOXIDE 29.4 mEq/L (21-32); CREATININE 1.52 mg/dl (0.80-1.30)
[2018-04-23 07:40] VITALS: BP 114/73; TEMP 97.8
[2018-04-23 07:44] LABS: BASOPHILS % (AUTO) 1 % (0-3); EOSINOPHILS % (AUTO) 0 % (0-9); HEMATOCRIT 38 % (39-53); HEMOGLOBIN 12.1 gm/dl (13.5-17.7); LYMPHOCYTES % (AUTO) 8.6 % (10-50); MEAN CORPUSCULAR HGB CONC 31.7 gm/dl (32.0-36.0); MEAN CORPUSCULAR VOLUME 95 fL (80-100); MONOCYTES % (AUTO) 8.2 % (0-12); NEUTROPHILS % (AUTO) 82.6 % (37-80)
[2018-04-23] MEDS: TAMSULOSIN HYDROCHLORIDE 0.4 MG CAP PO SCH (09:03)
[2018-04-23] MEDS: FUROSEMIDE 20 MG TAB PO SCH (09:03)
[2018-04-23] MEDS: MULTIVITAMIN2 1 EA TAB PO SCH (09:04)
[2018-04-23] MEDS: ASCORBIC ACID 500 MG TAB PO SCH (09:04)
[2018-04-23] MEDS: PEG-400/PROPYLENE GLYCOL 1 DROP SOL RIGHTEYE SCH (09:04)
[2018-04-23] MEDS: METOPROLOL SUCCINATE 50 MG ER TAB PO SCH (09:04)
[2018-04-23] MEDS: ENOXAPARIN 40 MG SOL SC SCH (09:06)
[2018-04-23] MEDS: SOLUMEDROL 125 MG/2 ML 125 MG/2 ML PDS IV SCH (09:07)
[2018-04-23] MEDS: GUAIFENESIN 200 MG/10 ML SOL PO SCH (09:09)
[2018-04-23 09:45] VITALS: PULSE 84; RESP 20; O2SAT 93
== END 2018-04-23 09:55 | DRG 178 ==
LOC: ED 09:34 → UNDOADMOB 13:10 → ACUTE CARE 13:10
PROVIDERS: ADMIT Internal Medicine; ATTEND Internal Medicine
PROC: F01K0FZ Muscle Performance Assessment of Musculoskeletal System - Upper Back / Upper Extremity using Assistive, Adaptive, Supportive or Protective Equipment (ICD-10-PCS; principal; 2018-04-22)
PROC: F02Z0FZ Bathing/Showering Assessment using Assistive, Adaptive, Supportive or Protective Equipment (ICD-10-PCS; 2018-04-22)
PROC: F02Z2ZZ Feeding/Eating Assessment (ICD-10-PCS; 2018-04-22)
DX: J69.0 Pneumonitis due to inhalation of food and vomit (principal); J44.1 Chronic obstructive pulmonary disease with (acute) exacerbation; R13.10 Dysphagia, unspecified; R50.9 Fever, unspecified; J18.9 Pneumonia, unspecified organism; R06.02 Shortness of breath; I48.91 Unspecified atrial fibrillation; F41.9 Anxiety disorder, unspecified; E11.9 Type 2 diabetes mellitus without complications
CPT/HCPCS: 36415; 71045; 80048; 80053; 81001; 83880; 84484; 85025; 87040; 87088; 87804; 93005; 94150; 94640; 94664; 94762; 96365; 96374; 99070; 99220; 99285; J1650; J2543; J2930; J7613; A9270; A9270-GY

== ENCOUNTER 2018-05-31 19:07 | Emergency (ER) | payer OTHER ==
[2018-05-31] MEDS ORDERED: ALBUTEROL/IPRATROPIUM 1 VIAL SOL ONE (19:10)
[2018-05-31] MEDS ORDERED: SOLUMEDROL 125 MG/2 ML 125 MG/2 ML PDS IM ONE (19:17)
[2018-05-31 19:25] VITALS: TEMP 98
[2018-05-31] MEDS ORDERED: ALBUTEROL/IPRATROPIUM 1 VIAL SOL INH ONE (19:25)
[2018-05-31] MEDS ORDERED: SOLUMEDROL 125 MG/2 ML 125 MG/2 ML PDS ONE (19:30)
[2018-05-31 19:31] LABS: BASOPHILS % (AUTO) 1 % (0-3); EOSINOPHILS % (AUTO) 3 % (0-9); HEMATOCRIT 41 % (39-53); HEMOGLOBIN 13.3 gm/dl (13.5-17.7); LYMPHOCYTES % (AUTO) 27.2 % (10-50); MEAN CORPUSCULAR HEMOGLOBIN 30.4 pg (27.0-32.0); MEAN CORPUSCULAR HGB CONC 32.4 gm/dl (32.0-36.0); MEAN CORPUSCULAR VOLUME 94 fL (80-100); MONOCYTES % (AUTO) 9.7 % (0-12); NEUTROPHILS % (AUTO) 59.2 % (37-80)
[2018-05-31 19:39] LABS: CALCIUM 8.7 mg/dl (8.5-10.1); CREATININE 1.64 mg/dl (0.80-1.30); POTASSIUM 3.7 mMol/L (3.5-5.1)
[2018-05-31] MEDS ORDERED: AZITHROMYCIN 250 MG TAB ONE (20:19)
[2018-05-31] MEDS ORDERED: AZITHROMYCIN 250 MG TAB PO ONE (20:19)
[2018-05-31 21:11] VITALS: BP 100/56; PULSE 104; RESP 24; O2SAT 90
== END 2018-05-31 20:55 | DRG 192 ==
LOC: ED 19:07
DX: J44.1 Chronic obstructive pulmonary disease with (acute) exacerbation (principal); R06.02 Shortness of breath; E11.9 Type 2 diabetes mellitus without complications
CPT/HCPCS: 36415; 71045; 80048; 85025; 93005; 96372; 99283; 99285; J2930; A9270-GY